=== PATIENT | male | born 1970 | race Two or more races ===

== ENCOUNTER 2021-04-19 11:18 | Inpatient (IN) | payer OTHER ==
[2021-04-19] VITALS (11 sets, daily range): BP systolic 109–129; BP diastolic 60–67
[~2021-04-19] VITALS: Ht 175.3 cm; Wt 131.0 kg
[2021-04-19] MEDS ORDERED: methylPREDNISolone SOD SUCC 125 MG/2 ML VL IV ONE (11:30)
[2021-04-19] MEDS ORDERED: ACETAMINOPHEN 500 MG TAB PO ONE (11:30)
[2021-04-19 12:44] LABS: Basophils # (auto) 0 10 ^3/uL (0-0.2); Basophils % (auto) 0.1 % (0.0-2.0); Eosinophils # (auto) 0 10 ^3/uL (0-0.8); Hematocrit 27.4 % (41.0-53.0); Hemoglobin 9.4 g/dL (13.5-17.5); Lymphocytes # (auto) 1.8 10 ^3/uL (0.4-5.4); Lymphocytes % (auto) 8.1 % (10.0-50.0); Mean Corpuscular Hemoglobin 30.6 pg (28.0-32.0); Mean Corpuscular Hgb Conc. 34.3 g/dL (32.0-36.0); Mean Corpuscular Volume 89.4 fL (80.0-100.0); Monocytes # (auto) 0.5 10 ^3/uL (0-1.3); Monocytes % (auto) 2.3 % (0.0-12.0); Neutrophils # (auto) 19.9 10 ^3/uL (1.6-8.6); Neutrophils % (auto) 89.5 % (37.0-80.0); Red Blood Cells 3.07 10^6/uL (4.5-5.90); Red Cell Distribution Width 14.4 % (11.8-14.3); White Blood Cell 22.2 10^3/uL (4.4-10.8)
[2021-04-19 12:58] LABS: Chloride 99 mmol/L (98-107); Potassium 3.6 mmol/L (3.5-5.1); Sodium 131 mmol/L (136-145)
[2021-04-19] MEDS ORDERED: MORPHINE SULFATE INJECTION 2 MG/ML SYRG IV PRN (13:00)
[2021-04-19 13:11] LABS: Alanine Aminotransferase 28 U/L (16-61); Albumin 2.4 g/dL (3.4-5.0); Alkaline Phosphatase 81 U/L (45-117); Anion Gap 14 (5-15); Aspartate Aminotransferase 40 U/L (15-37); BUN/Creatinine Ratio 9.6; Bilirubin, Total 0.5 mg/dL (0.2-1.0); Calcium 7.5 mg/dL (8.5-10.1); Carbon Dioxide 18 mmol/L (21-32); GFR African American 8 mL/min; GFR Non-African American 6 mL/min; Glucose 130 mg/dL (74-106); Total Protein 7.6 g/dL (6.4-8.2)
[2021-04-19] MEDS ORDERED: traMADol HCL 50 MG TAB PO PRN (13:15)
[2021-04-19] MEDS ORDERED: diphenhdrAMINE HCL 50 MG/1 ML VL IV PRN (13:15)
[2021-04-19] MEDS ORDERED: levoFLOXacin 250MG 50 ML IV ONE (13:15)
[2021-04-19] MEDS ORDERED: TEMAZEPAM 15 MG CAP PO PRN (13:15)
[2021-04-19] MEDS ORDERED: ACETAMINOPHEN 500 MG TAB PO PRN (13:15)
[2021-04-19] MEDS ORDERED: PROMETHAZINE HCL 25 MG/ML 1ML IV PRN (13:15)
[2021-04-19] MEDS ORDERED: REMDESIVIR PER PHARMACY 0 ML IV SCH (13:15)
[2021-04-19] MEDS ORDERED: DEXTROSE (50%) 50ML SYRG IV PRN (13:15)
[2021-04-19] MEDS: CLINDAMYCIN 600MG IV 50 ML IV SCH ×2 (13:47→21:09)
[2021-04-19 13:48] LABS: CRP High Sensitivity > 19.0 mg/dL (< 0.3)
[2021-04-19 13:52] LABS: Blood Urea Nitrogen 89 mg/dL (7-18)
[2021-04-19] MEDS ORDERED: ENOXAPARIN SOD 100 MG/1 ML SYRINGE SC ONE (15:00)
[2021-04-19] MEDS: InsuLIN REG 1unit/0.01ml Soln (100units/ml) SC SCH ×2 (18:25→22:20)
[2021-04-19] MEDS: ACCU-CHEK COMFORT CURVE STRIP VI SCH ×2 (18:29→22:18)
[2021-04-19] MEDS: BUDESONIDE (INHALATION) 180 MCG IH IN SCH (20:25)
[2021-04-19] MEDS: ALBUTEROL SULF HFA 90MCG INH 200DOSE IN PRN (20:25)
[2021-04-19] MEDS: ATORVASTATIN 20 MG TAB PO SCH (21:09)
[2021-04-19] MEDS ORDERED: HYDR50TA15 PO (21:32)
[2021-04-19] MEDS ORDERED: INS7030I SC (21:32)
[2021-04-19] MEDS ORDERED: NIFE20CA PO (21:32)
[2021-04-19] MEDS ORDERED: CINA30TA2 PO (21:32)
[2021-04-19] MEDS ORDERED: ATOR20TA PO (21:32)
[2021-04-20] VITALS (31 sets, daily range): BP systolic 102–136; BP diastolic 56–71
[2021-04-20] MEDS: CLINDAMYCIN 600MG IV 50 ML IV SCH ×2 (05:17→13:26)
[2021-04-20 05:58] LABS: Basophils # (auto) 0 10 ^3/uL (0-0.2); Basophils % (auto) 0.1 % (0.0-2.0); Eosinophils # (auto) 0 10 ^3/uL (0-0.8); Hematocrit 27.5 % (41.0-53.0); Hemoglobin 9.2 g/dL (13.5-17.5); Lymphocytes # (auto) 1.3 10 ^3/uL (0.4-5.4); Mean Corpuscular Hemoglobin 29.9 pg (28.0-32.0); Mean Corpuscular Hgb Conc. 33.6 g/dL (32.0-36.0); Mean Corpuscular Volume 88.8 fL (80.0-100.0); Monocytes # (auto) 0.4 10 ^3/uL (0-1.3); Monocytes % (auto) 2.5 % (0.0-12.0); Neutrophils # (auto) 14.8 10 ^3/uL (1.6-8.6); Neutrophils % (auto) 89.4 % (37.0-80.0); Nucleated Red Blood Cells % 0.1 %; Red Blood Cells 3.09 10^6/uL (4.5-5.90); Red Cell Distribution Width 14.7 % (11.8-14.3); White Blood Cell 16.6 10^3/uL (4.4-10.8)
[2021-04-20] MEDS: ACCU-CHEK COMFORT CURVE STRIP VI SCH ×4 (05:59→21:57)
[2021-04-20] MEDS: InsuLIN REG 1unit/0.01ml Soln (100units/ml) SC SCH ×4 (06:00→21:57)
[2021-04-20] MEDS: ALBUTEROL SULF HFA 90MCG INH 200DOSE IN PRN ×2 (06:17→18:32)
[2021-04-20] MEDS: BUDESONIDE (INHALATION) 180 MCG IH IN SCH ×2 (06:17→18:31)
[2021-04-20 06:18] LABS: Albumin 2.1 g/dL (3.4-5.0)
[2021-04-20 06:26] LABS: BUN/Creatinine Ratio 11.2; Bilirubin, Total 0.4 mg/dL (0.2-1.0); Total Protein 7.4 g/dL (6.4-8.2)
[2021-04-20] MEDS: ASCORBIC ACID 1,000 MG TAB PO SCH (09:14)
[2021-04-20] MEDS: DexAMETHasone SOD PHOS 10MG/1ML VIAL INJ IV SCH (09:14)
[2021-04-20] MEDS: ENOXAPARIN SOD 100 MG/1 ML SYRINGE SC SCH (09:15)
[2021-04-20] MEDS: IVERMECTIN 3 MG TAB PO SCH (09:15)
[2021-04-20] MEDS: CHOLECALCIFEROL (VITD3) 2,000 UNIT CAP/TAB PO SCH (09:15)
[2021-04-20] MEDS: ZINC SULFATE 220mg CAP or TAB PO SCH (09:16)
[2021-04-20] MEDS ORDERED: NITROGLYCERIN 0.2MG/HR TOPICAL PATCH TD SCH (10:00)
[2021-04-20] MEDS ORDERED: ENOXAPARIN SOD 40 MG/0.4 ML SYRINGE SC SCH (10:00)
[2021-04-20] MEDS ORDERED: PERITONEAL DIALYSIS IP SCH (14:00)
[2021-04-20] MEDS ORDERED: REMDESIVIR 200 MG in NS 210ml LOADING DOSE ADULT IV ONE (15:00)
[2021-04-20] MEDS: PERITONEAL DIALYSIS 2.5% SOLN 2,000 ML IP SCH ×2 (16:00→21:57)
[2021-04-20] MEDS: ATORVASTATIN 20 MG TAB PO SCH (20:20)
[2021-04-21] VITALS (23 sets, daily range): BP systolic 125–163; BP diastolic 57–79
[2021-04-21 05:19] LABS: Hematocrit 28.2 % (41.0-53.0); Hemoglobin 9.4 g/dL (13.5-17.5); Mean Corpuscular Hemoglobin 29.6 pg (28.0-32.0); Mean Corpuscular Hgb Conc. 33.3 g/dL (32.0-36.0); Mean Corpuscular Volume 88.9 fL (80.0-100.0); Red Blood Cells 3.17 10^6/uL (4.5-5.90); Red Cell Distribution Width 14.3 % (11.8-14.3)
[2021-04-21] MEDS: PERITONEAL DIALYSIS 2.5% SOLN 2,000 ML IP SCH ×8 (05:37→20:44)
[2021-04-21] MEDS: ALBUTEROL SULF HFA 90MCG INH 200DOSE IN PRN ×2 (05:42→20:41)
[2021-04-21] MEDS: BUDESONIDE (INHALATION) 180 MCG IH IN SCH ×2 (05:42→18:00)
[2021-04-21 05:44] LABS: Potassium 4.3 mmol/L (3.5-5.1)
[2021-04-21 05:45] LABS: Basophils % (manual) 0 (0.0-2.0); Blast Cells 0; Eosinophils % (manual) 0 (0-7); Metamyelocytes % 0; Myelocytes % 0; Promyelocytes % 0; Reactive Lymphocytes 0
[2021-04-21] MEDS: ACCU-CHEK COMFORT CURVE STRIP VI SCH ×4 (05:49→21:37)
[2021-04-21 05:50] LABS: Albumin 2.2 g/dL (3.4-5.0); BUN/Creatinine Ratio 12.9; Bilirubin, Total 0.4 mg/dL (0.2-1.0); Calcium 7.9 mg/dL (8.5-10.1); Total Protein 7.1 g/dL (6.4-8.2)
[2021-04-21] MEDS: InsuLIN REG 1unit/0.01ml Soln (100units/ml) SC SCH ×4 (05:51→21:40)
[2021-04-21 09:43] LABS: Band Neutrophils % (manual) 2; Lymphocytes % (manual) 4 (10.0-50.0); Monocytes % (manual) 2 (0-12)
[2021-04-21] MEDS: ENOXAPARIN SOD 100 MG/1 ML SYRINGE SC SCH (10:16)
[2021-04-21] MEDS: ZINC SULFATE 220mg CAP or TAB PO SCH (10:16)
[2021-04-21] MEDS: DexAMETHasone SOD PHOS 10MG/1ML VIAL INJ IV SCH (10:16)
[2021-04-21] MEDS: ASCORBIC ACID 1,000 MG TAB PO SCH (10:17)
[2021-04-21] MEDS: CHOLECALCIFEROL (VITD3) 2,000 UNIT CAP/TAB PO SCH (10:17)
[2021-04-21] MEDS: IVERMECTIN 3 MG TAB PO SCH (10:17)
[2021-04-21] MEDS: levoFLOXacin 250MG 50 ML IV SCH (12:30)
[2021-04-21] MEDS: REMDESIVIR 100mg 100 MG in SODIUM CHL 0.9% 230 ML IV SCH (15:32)
[2021-04-21] MEDS: ATORVASTATIN 20 MG TAB PO SCH (21:37)
[2021-04-22] VITALS (25 sets, daily range): BP systolic 129–164; BP diastolic 64–83
[2021-04-22] MEDS: PERITONEAL DIALYSIS 2.5% SOLN 2,000 ML IP SCH ×6 (02:30→20:58)
[2021-04-22] MEDS: InsuLIN REG 1unit/0.01ml Soln (100units/ml) SC SCH ×4 (05:55→20:58)
[2021-04-22 06:06] LABS: Hematocrit 27.3 % (41.0-53.0); Hemoglobin 9.4 g/dL (13.5-17.5); Mean Corpuscular Hemoglobin 29.9 pg (28.0-32.0); Mean Corpuscular Hgb Conc. 34.2 g/dL (32.0-36.0); Mean Corpuscular Volume 87.4 fL (80.0-100.0); Red Blood Cells 3.13 10^6/uL (4.5-5.90); Red Cell Distribution Width 14.3 % (11.8-14.3); White Blood Cell 14.3 10^3/uL (4.4-10.8)
[2021-04-22 06:26] LABS: Basophils % (manual) 0 (0.0-2.0); Blast Cells 0; Eosinophils % (manual) 0 (0-7); Metamyelocytes % 0; Myelocytes % 0; Promyelocytes % 0; Reactive Lymphocytes 0
[2021-04-22 06:36] LABS: BUN/Creatinine Ratio 14.3; Calcium 7.9 mg/dL (8.5-10.1)
[2021-04-22 06:39] LABS: Bilirubin, Total 0.5 mg/dL (0.2-1.0); Total Protein 6.6 g/dL (6.4-8.2)
[2021-04-22] MEDS: ACCU-CHEK COMFORT CURVE STRIP VI SCH ×4 (06:59→21:07)
[2021-04-22] MEDS: ASCORBIC ACID 1,000 MG TAB PO SCH (10:00)
[2021-04-22] MEDS: DexAMETHasone SOD PHOS 10MG/1ML VIAL INJ IV SCH (10:00)
[2021-04-22] MEDS: ZINC SULFATE 220mg CAP or TAB PO SCH (10:00)
[2021-04-22] MEDS ORDERED: NIFEdipine ER 30 MG TAB PO SCH (10:00)
[2021-04-22] MEDS: CHOLECALCIFEROL (VITD3) 2,000 UNIT CAP/TAB PO SCH (10:00)
[2021-04-22] MEDS: IVERMECTIN 3 MG TAB PO SCH (10:00)
[2021-04-22] MEDS: ENOXAPARIN SOD 40 MG/0.4 ML SYRINGE SC SCH (10:00)
[2021-04-22] MEDS ORDERED: INSULIN 70/30 1unit/0.01ml Susp (100units/ml) SC ONE (11:15)
[2021-04-22 11:26] LABS: Band Neutrophils % (manual) 1; Lymphocytes % (manual) 3 (10.0-50.0); Monocytes % (manual) 9 (0-12)
[2021-04-22] MEDS: BUDESONIDE (INHALATION) 180 MCG IH IN SCH ×2 (14:17→18:10)
[2021-04-22] MEDS: REMDESIVIR 100mg 100 MG in SODIUM CHL 0.9% 230 ML IV SCH (15:00)
[2021-04-22] MEDS: INSULIN 70/30 1unit/0.01ml Susp (100units/ml) SC SCH (18:00)
[2021-04-22] MEDS: ALBUTEROL SULF HFA 90MCG INH 200DOSE IN PRN (18:52)
[2021-04-22] MEDS: ATORVASTATIN 20 MG TAB PO SCH (20:26)
[2021-04-22] MEDS: NIFEdipine ER 30 MG TAB PO SCH (20:58)
[2021-04-23] VITALS (20 sets, daily range): BP systolic 118–141; BP diastolic 49–70
[2021-04-23] MEDS: ACCU-CHEK COMFORT CURVE STRIP VI SCH ×4 (05:54→21:56)
[2021-04-23] MEDS: InsuLIN REG 1unit/0.01ml Soln (100units/ml) SC SCH ×4 (05:55→21:56)
[2021-04-23 05:58] LABS: Basophils # (auto) 0 10 ^3/uL (0-0.2); Basophils % (auto) 0.1 % (0.0-2.0); Eosinophils # (auto) 0 10 ^3/uL (0-0.8); Eosinophils % (auto) 0.1 % (0.0-7.0); Hematocrit 28.9 % (41.0-53.0); Hemoglobin 9.7 g/dL (13.5-17.5); Lymphocytes # (auto) 0.8 10 ^3/uL (0.4-5.4); Lymphocytes % (auto) 4.3 % (10.0-50.0); Mean Corpuscular Hemoglobin 29.3 pg (28.0-32.0); Mean Corpuscular Hgb Conc. 33.6 g/dL (32.0-36.0); Mean Corpuscular Volume 87.2 fL (80.0-100.0); Monocytes # (auto) 0.7 10 ^3/uL (0-1.3); Monocytes % (auto) 3.7 % (0.0-12.0); Neutrophils # (auto) 17.1 10 ^3/uL (1.6-8.6); Neutrophils % (auto) 91.8 % (37.0-80.0); Red Blood Cells 3.32 10^6/uL (4.5-5.90); Red Cell Distribution Width 14.2 % (11.8-14.3); White Blood Cell 18.6 10^3/uL (4.4-10.8)
[2021-04-23] MEDS: PERITONEAL DIALYSIS 2.5% SOLN 2,000 ML IP SCH ×6 (06:09→20:35)
[2021-04-23] MEDS: ALBUTEROL SULF HFA 90MCG INH 200DOSE IN PRN ×2 (06:15→18:45)
[2021-04-23] MEDS: BUDESONIDE (INHALATION) 180 MCG IH IN SCH ×2 (06:16→18:45)
[2021-04-23 06:18] LABS: Calcium 7.7 mg/dL (8.5-10.1)
[2021-04-23 06:21] LABS: BUN/Creatinine Ratio 16.1
[2021-04-23 06:24] LABS: Bilirubin, Total 0.6 mg/dL (0.2-1.0)
[2021-04-23] MEDS: INSULIN 70/30 1unit/0.01ml Susp (100units/ml) SC SCH ×2 (08:00→18:00)
[2021-04-23] MEDS: hydrALAZINE HCL 25 MG TAB PO SCH (10:00)
[2021-04-23] MEDS: ZINC SULFATE 220mg CAP or TAB PO SCH (10:00)
[2021-04-23] MEDS: PANTOPRAZOLE 40 MG TAB PO SCH ×2 (10:00→19:47)
[2021-04-23] MEDS: ASCORBIC ACID 1,000 MG TAB PO SCH (10:00)
[2021-04-23] MEDS: NIFEdipine ER 30 MG TAB PO SCH ×2 (10:00→21:56)
[2021-04-23] MEDS: CHOLECALCIFEROL (VITD3) 2,000 UNIT CAP/TAB PO SCH (10:00)
[2021-04-23] MEDS: DexAMETHasone SOD PHOS 10MG/1ML VIAL INJ IV SCH (10:00)
[2021-04-23] MEDS: IVERMECTIN 3 MG TAB PO SCH (10:00)
[2021-04-23] MEDS: ENOXAPARIN SOD 40 MG/0.4 ML SYRINGE SC SCH (10:00)
[2021-04-23] MEDS: levoFLOXacin 250MG 50 ML IV SCH (10:15)
[2021-04-23] MEDS ORDERED: VANCOMYCIN PER PHARMACY 0 MG IV SCH (10:45)
[2021-04-23] MEDS ORDERED: VANCOMYCIN 1GM/250ML 250 ML IV ONE (12:00)
[2021-04-23] MEDS: REMDESIVIR 100mg 100 MG in SODIUM CHL 0.9% 230 ML IV SCH (15:00)
[2021-04-23] MEDS ORDERED: VANCOMYCIN 500 MG in D5W 5% 100 ML IV ONE (15:45)
[2021-04-23] MEDS: ATORVASTATIN 20 MG TAB PO SCH (19:47)
[2021-04-23] MEDS ORDERED: ALUM & MAG HYDROX-SIMETH LIQ(MAALOX) 30 ML PO PRN (22:00)
[2021-04-24] VITALS (21 sets, daily range): BP systolic 100–129; BP diastolic 52–86
[2021-04-24] MEDS: PERITONEAL DIALYSIS 2.5% SOLN 2,000 ML IP SCH ×6 (04:00→20:00)
[2021-04-24] MEDS: NITROGLYCERIN 0.4 MG SL TAB SL PRN ×2 (05:34→05:56)
[2021-04-24] MEDS: InsuLIN REG 1unit/0.01ml Soln (100units/ml) SC SCH ×4 (06:08→22:30)
[2021-04-24] MEDS: ACCU-CHEK COMFORT CURVE STRIP VI SCH ×4 (06:08→22:29)
[2021-04-24 06:17] LABS: Basophils # (auto) 0 10 ^3/uL (0-0.2); Basophils % (auto) 0.1 % (0.0-2.0); Eosinophils # (auto) 0 10 ^3/uL (0-0.8); Eosinophils % (auto) 0.2 % (0.0-7.0); Hematocrit 29.3 % (41.0-53.0); Hemoglobin 9.8 g/dL (13.5-17.5); Lymphocytes # (auto) 0.7 10 ^3/uL (0.4-5.4); Lymphocytes % (auto) 3.2 % (10.0-50.0); Mean Corpuscular Hemoglobin 29.4 pg (28.0-32.0); Mean Corpuscular Hgb Conc. 33.4 g/dL (32.0-36.0); Mean Corpuscular Volume 87.8 fL (80.0-100.0); Monocytes # (auto) 0.6 10 ^3/uL (0-1.3); Monocytes % (auto) 2.7 % (0.0-12.0); Neutrophils # (auto) 19.9 10 ^3/uL (1.6-8.6); Neutrophils % (auto) 93.8 % (37.0-80.0); Nucleated Red Blood Cells % 0.1 %; Red Blood Cells 3.34 10^6/uL (4.5-5.90); Red Cell Distribution Width 14.8 % (11.8-14.3); White Blood Cell 21.2 10^3/uL (4.4-10.8)
[2021-04-24] MEDS: BUDESONIDE (INHALATION) 180 MCG IH IN SCH ×2 (06:23→19:06)
[2021-04-24] MEDS: ALBUTEROL SULF HFA 90MCG INH 200DOSE IN PRN ×2 (06:23→19:07)
[2021-04-24 06:29] LABS: Potassium 3.9 mmol/L (3.5-5.1)
[2021-04-24 06:49] LABS: Albumin 1.8 g/dL (3.4-5.0); BUN/Creatinine Ratio 16.5; Bilirubin, Total 0.5 mg/dL (0.2-1.0); Calcium 8.4 mg/dL (8.5-10.1); Total Protein 6.5 g/dL (6.4-8.2)
[2021-04-24] MEDS ORDERED: KETOROLAC TROMETH 30 MG/ML 1ML VIAL IV ONE (08:00)
[2021-04-24] MEDS: INSULIN 70/30 1unit/0.01ml Susp (100units/ml) SC SCH ×3 (08:00→18:00)
[2021-04-24] MEDS: hydrALAZINE HCL 25 MG TAB PO SCH (08:02)
[2021-04-24] MEDS ORDERED: VANCOMYCIN 1GM/250ML 250 ML IV ONE ×2 (08:30→18:00)
[2021-04-24] MEDS: ZINC SULFATE 220mg CAP or TAB PO SCH (10:00)
[2021-04-24] MEDS: PANTOPRAZOLE 40 MG TAB PO SCH ×2 (10:00→22:29)
[2021-04-24] MEDS: DexAMETHasone SOD PHOS 10MG/1ML VIAL INJ IV SCH (10:00)
[2021-04-24] MEDS: CHOLECALCIFEROL (VITD3) 2,000 UNIT CAP/TAB PO SCH (10:00)
[2021-04-24] MEDS: IVERMECTIN 3 MG TAB PO SCH (10:00)
[2021-04-24] MEDS: ASCORBIC ACID 1,000 MG TAB PO SCH (10:00)
[2021-04-24] MEDS: NIFEdipine ER 30 MG TAB PO SCH ×2 (10:00→22:00)
[2021-04-24] MEDS ORDERED: MORPHINE SULFATE INJECTION 2 MG/ML SYRG IV PRN (10:45)
[2021-04-24] MEDS ORDERED: ENOXAPARIN SOD 100 MG/1 ML SYRINGE SC ONE (12:30)
[2021-04-24] MEDS: CALCIUM CARB 500 MG CHEW TAB PO SCH (14:49)
[2021-04-24] MEDS: REMDESIVIR 100mg 100 MG in SODIUM CHL 0.9% 230 ML IV SCH (14:49)
[2021-04-24] MEDS: ATORVASTATIN 20 MG TAB PO SCH (22:29)
[2021-04-25] VITALS (26 sets, daily range): BP systolic 94–143; BP diastolic 50–67
[2021-04-25] MEDS: PERITONEAL DIALYSIS 2.5% SOLN 2,000 ML IP SCH ×6 (04:00→20:00)
[2021-04-25 05:22] LABS: Basophils # (auto) 0 10 ^3/uL (0-0.2); Basophils % (auto) 0.2 % (0.0-2.0); Eosinophils # (auto) 0 10 ^3/uL (0-0.8); Eosinophils % (auto) 0.1 % (0.0-7.0); Hematocrit 27.6 % (41.0-53.0); Hemoglobin 9.1 g/dL (13.5-17.5); Lymphocytes # (auto) 0.7 10 ^3/uL (0.4-5.4); Lymphocytes % (auto) 3.4 % (10.0-50.0); Mean Corpuscular Hemoglobin 28.9 pg (28.0-32.0); Mean Corpuscular Volume 87.6 fL (80.0-100.0); Monocytes # (auto) 0.7 10 ^3/uL (0-1.3); Monocytes % (auto) 3.2 % (0.0-12.0); Neutrophils % (auto) 93.1 % (37.0-80.0); Nucleated Red Blood Cells % 0.1 %; Red Blood Cells 3.15 10^6/uL (4.5-5.90); Red Cell Distribution Width 14.8 % (11.8-14.3); White Blood Cell 21.5 10^3/uL (4.4-10.8)
[2021-04-25 05:39] LABS: Potassium 4.4 mmol/L (3.5-5.1)
[2021-04-25 05:43] LABS: Albumin 1.7 g/dL (3.4-5.0); Bilirubin, Total 0.6 mg/dL (0.2-1.0); Calcium 8.5 mg/dL (8.5-10.1); Total Protein 5.8 g/dL (6.4-8.2)
[2021-04-25] MEDS: ACCU-CHEK COMFORT CURVE STRIP VI SCH ×4 (05:59→21:35)
[2021-04-25] MEDS: InsuLIN REG 1unit/0.01ml Soln (100units/ml) SC SCH ×4 (06:00→22:05)
[2021-04-25] MEDS: ALBUTEROL SULF HFA 90MCG INH 200DOSE IN PRN ×2 (06:26→21:55)
[2021-04-25] MEDS: BUDESONIDE (INHALATION) 180 MCG IH IN SCH ×2 (06:26→21:55)
[2021-04-25] MEDS: INSULIN 70/30 1unit/0.01ml Susp (100units/ml) SC SCH ×3 (07:49→18:00)
[2021-04-25] MEDS: CALCIUM CARB 500 MG CHEW TAB PO SCH ×3 (07:49→17:49)
[2021-04-25] MEDS: ASCORBIC ACID 1,000 MG TAB PO SCH (09:45)
[2021-04-25] MEDS: IVERMECTIN 3 MG TAB PO SCH (09:45)
[2021-04-25] MEDS: ZINC SULFATE 220mg CAP or TAB PO SCH (09:46)
[2021-04-25] MEDS: ENOXAPARIN SOD 150 MG/1 ML SYRINGE SC SCH (09:47)
[2021-04-25] MEDS: DexAMETHasone SOD PHOS 10MG/1ML VIAL INJ IV SCH (09:47)
[2021-04-25] MEDS: PANTOPRAZOLE 40 MG TAB PO SCH ×2 (09:47→21:35)
[2021-04-25] MEDS: CHOLECALCIFEROL (VITD3) 2,000 UNIT CAP/TAB PO SCH (09:47)
[2021-04-25] MEDS: NIFEdipine ER 30 MG TAB PO SCH ×3 (10:00→22:00)
[2021-04-25] MEDS: hydrALAZINE HCL 25 MG TAB PO SCH (10:00)
[2021-04-25] MEDS: levoFLOXacin 250MG 50 ML IV SCH (12:27)
[2021-04-25 15:10] LABS: Calcium 8.6 mg/dL (8.5-10.1); Potassium 4.7 mmol/L (3.5-5.1)
[2021-04-25] MEDS: ATORVASTATIN 20 MG TAB PO SCH (21:35)
[2021-04-26] VITALS (22 sets, daily range): BP systolic 96–142; BP diastolic 40–63
[2021-04-26] MEDS: PERITONEAL DIALYSIS 2.5% SOLN 2,000 ML IP SCH ×6 (01:18→20:00)
[2021-04-26 05:15] LABS: Basophils # (auto) 0 10 ^3/uL (0-0.2); Basophils % (auto) 0.2 % (0.0-2.0); Eosinophils # (auto) 0 10 ^3/uL (0-0.8); Hematocrit 26.8 % (41.0-53.0); Hemoglobin 8.9 g/dL (13.5-17.5); Lymphocytes # (auto) 0.8 10 ^3/uL (0.4-5.4); Lymphocytes % (auto) 4.5 % (10.0-50.0); Mean Corpuscular Hemoglobin 29.5 pg (28.0-32.0); Mean Corpuscular Hgb Conc. 33.3 g/dL (32.0-36.0); Mean Corpuscular Volume 88.4 fL (80.0-100.0); Monocytes # (auto) 0.6 10 ^3/uL (0-1.3); Monocytes % (auto) 3.3 % (0.0-12.0); Neutrophils # (auto) 16.6 10 ^3/uL (1.6-8.6); Red Blood Cells 3.04 10^6/uL (4.5-5.90); Red Cell Distribution Width 15.1 % (11.8-14.3)
[2021-04-26 05:33] LABS: Calcium 8.5 mg/dL (8.5-10.1)
[2021-04-26 05:37] LABS: BUN/Creatinine Ratio 17.8
[2021-04-26] MEDS: BUDESONIDE (INHALATION) 180 MCG IH IN SCH ×2 (06:03→18:20)
[2021-04-26] MEDS: ALBUTEROL SULF HFA 90MCG INH 200DOSE IN PRN ×2 (06:03→18:20)
[2021-04-26] MEDS: ACCU-CHEK COMFORT CURVE STRIP VI SCH ×4 (06:12→22:30)
[2021-04-26] MEDS: InsuLIN REG 1unit/0.01ml Soln (100units/ml) SC SCH ×4 (06:13→22:30)
[2021-04-26] MEDS: CALCIUM CARB 500 MG CHEW TAB PO SCH ×3 (08:00→18:06)
[2021-04-26] MEDS: INSULIN 70/30 1unit/0.01ml Susp (100units/ml) SC SCH ×3 (08:00→18:00)
[2021-04-26] MEDS: ENOXAPARIN SOD 150 MG/1 ML SYRINGE SC SCH (10:10)
[2021-04-26] MEDS: ASCORBIC ACID 1,000 MG TAB PO SCH (10:10)
[2021-04-26] MEDS: CHOLECALCIFEROL (VITD3) 2,000 UNIT CAP/TAB PO SCH (10:10)
[2021-04-26] MEDS: DexAMETHasone SOD PHOS 10MG/1ML VIAL INJ IV SCH (10:10)
[2021-04-26] MEDS: ZINC SULFATE 220mg CAP or TAB PO SCH (10:11)
[2021-04-26] MEDS: NIFEdipine ER 30 MG TAB PO SCH ×2 (10:11→22:15)
[2021-04-26] MEDS: PANTOPRAZOLE 40 MG TAB PO SCH ×2 (10:12→22:15)
[2021-04-26] MEDS: hydrALAZINE HCL 25 MG TAB PO SCH (10:12)
[2021-04-26] MEDS: ATORVASTATIN 20 MG TAB PO SCH (22:15)
[2021-04-27] VITALS (38 sets, daily range): BP systolic 103–152; BP diastolic 51–74
[2021-04-27] MEDS: PERITONEAL DIALYSIS 2.5% SOLN 2,000 ML IP SCH ×6 (04:00→22:00)
[2021-04-27 05:46] LABS: Basophils # (auto) 0 10 ^3/uL (0-0.2); Basophils % (auto) 0.1 % (0.0-2.0); Eosinophils # (auto) 0 10 ^3/uL (0-0.8); Eosinophils % (auto) 0.1 % (0.0-7.0); Hematocrit 25.2 % (41.0-53.0); Hemoglobin 8.6 g/dL (13.5-17.5); Lymphocytes # (auto) 0.8 10 ^3/uL (0.4-5.4); Lymphocytes % (auto) 4.6 % (10.0-50.0); Mean Corpuscular Hemoglobin 29.7 pg (28.0-32.0); Mean Corpuscular Hgb Conc. 34.3 g/dL (32.0-36.0); Mean Corpuscular Volume 86.8 fL (80.0-100.0); Monocytes # (auto) 0.7 10 ^3/uL (0-1.3); Neutrophils # (auto) 14.8 10 ^3/uL (1.6-8.6); Neutrophils % (auto) 91.2 % (37.0-80.0); Red Cell Distribution Width 14.7 % (11.8-14.3); White Blood Cell 16.3 10^3/uL (4.4-10.8)
[2021-04-27] MEDS: ALBUTEROL SULF HFA 90MCG INH 200DOSE IN PRN (05:55)
[2021-04-27] MEDS: BUDESONIDE (INHALATION) 180 MCG IH IN SCH (05:55)
[2021-04-27 06:02] LABS: Calcium 8.2 mg/dL (8.5-10.1); Potassium 5.4 mmol/L (3.5-5.1)
[2021-04-27] MEDS ORDERED: LORazepam 0.5 MG TAB ONE (09:12)
[2021-04-27] MEDS ORDERED: LORazepam 0.5 MG TAB PO PRN (09:15)
[2021-04-27] MEDS: CHOLECALCIFEROL (VITD3) 2,000 UNIT CAP/TAB PO SCH (10:00)
[2021-04-27] MEDS: DexAMETHasone SOD PHOS 10MG/1ML VIAL INJ IV SCH (10:00)
[2021-04-27] MEDS ORDERED: FUROSEMIDE 40 MG/4 ML VIAL IV SCH (10:00)
[2021-04-27] MEDS ORDERED: LORazepam 2MG/ML-1ML VIAL IV PRN (11:15)
[2021-04-27] MEDS ORDERED: ETOMIDATE (2MG/ML) 20ML VIAL IV ONE (12:57)
[2021-04-27] MEDS ORDERED: SUCCINYLCHOLINE CHLORIDE 20 MG/ML 10ML VIAL IV ONE (12:57)
[2021-04-27] MEDS ORDERED: ROCURONIUM 10MG/ML 10ML VIAL IV ONE (12:57)
[2021-04-27] MEDS ORDERED: MIDAZOLAM DRIP 50 mg/50mL 50 ML IV ONE (13:12)
[2021-04-27] MEDS ORDERED: MIDAZOLAM HCL 2MG/2ML 2ml VIAL (1mg/ml) ONE (13:12)
[2021-04-27] MEDS ORDERED: MIDAZOLAM HCL 5 MG/ML-1ML VIAL IV ONE (13:15)
[2021-04-27] MEDS ORDERED: PROPOFOL 100 ML IV ONE (13:22)
[2021-04-27] MEDS: NOREPINEPHRINE 8 MG/250ML KIT 250 ML IV SCH (13:30)
[2021-04-27] MEDS ORDERED: fentaNYL Drip 2500mCg/250mlNS 250 ML IV SCH (13:30)
[2021-04-27] MEDS: MIDAZOLAM DRIP 50 mg/50mL 50 ML IV SCH ×2 (13:30→21:53)
[2021-04-27] MEDS: PROPOFOL 100 ML IV SCH ×3 (13:30→23:43)
[2021-04-27] MEDS: fentaNYL Drip 2500mCg/250mlNS 250 ML IV SCH ×2 (13:30→21:55)
[2021-04-27] MEDS ORDERED: NOREPINEPHRINE 8 MG/250ML KIT 250 ML IV SCH ×4 (13:30)
[2021-04-27] MEDS ORDERED: NOREPINEPHRINE 8 MG/250ML KIT 250 ML IV ONE (13:37)
[2021-04-27] MEDS ORDERED: SODIUM BICARBONATE 8.4 % INJ 50ML VIAL IV ONE (15:30)
[2021-04-27] MEDS: SODIUM BICARBONATE 50ML VIAL 150 ML in D5W 5% 1,000 ML IV SCH ×2 (16:30→20:10)
[2021-04-27] MEDS: ROCURONIUM BROMIDE 1,000 MG in D5W 5% 150 ML IV SCH ×2 (16:30→20:38)
[2021-04-27] MEDS: MEROPENEM 500MG IVPB 50 ML IV SCH ×2 (16:45→21:01)
[2021-04-27] MEDS: ALBUMIN 25% 100 ML IV SCH (17:00)
[2021-04-27] MEDS ORDERED: INSULIN 70/30 1unit/0.01ml Susp (100units/ml) SC SCH (18:00)
[2021-04-27] MEDS ORDERED: IPRATROPIUM BROM 0.5 MG/2.5ML INH SOL NEB PRN (18:15)
[2021-04-27] MEDS: ALBUTEROL SULF 2.5 MG/0.5ML(0.5%) NEB SOLN NEB SCH (22:00)
[2021-04-27] MEDS: BUDESONIDE (INHALATION) 0.5 MG/2 ML NEB NEB SCH (22:00)
[2021-04-27] MEDS: ACCU-CHEK COMFORT CURVE STRIP VI SCH (22:28)
[2021-04-27] MEDS: InsuLIN REG 1unit/0.01ml Soln (100units/ml) SC SCH (22:29)
[2021-04-27 23:43] LABS: Urine Amorphous Crystal FEW /hpf (None Seen); Urine Bacteria FEW /hpf (None Seen); Urine Blood Negative /uL (Negative); Urine Specific Gravity 1.015 (1.001-1.035); Urine WBC 9 /hpf (0 - 3)
[2021-04-28] VITALS (100 sets, daily range): BP systolic 98–154; BP diastolic 43–69
[2021-04-28] MEDS: NOREPINEPHRINE 8 MG/250ML KIT 250 ML IV SCH (00:54)
[2021-04-28] MEDS: MIDAZOLAM DRIP 50 mg/50mL 50 ML IV SCH ×4 (01:22→22:12)
[2021-04-28] MEDS: ALBUMIN 25% 100 ML IV SCH ×2 (01:25→09:16)
[2021-04-28] MEDS: PERITONEAL DIALYSIS 2.5% SOLN 2,000 ML IP SCH ×7 (02:00→17:50)
[2021-04-28] MEDS: ALBUTEROL SULF 2.5 MG/0.5ML(0.5%) NEB SOLN NEB SCH ×4 (02:00→14:14)
[2021-04-28] MEDS: PROPOFOL 100 ML IV SCH ×5 (02:12→20:59)
[2021-04-28 05:47] LABS: Basophils # (auto) 0 10 ^3/uL (0-0.2); Eosinophils # (auto) 0 10 ^3/uL (0-0.8); Lymphocytes # (auto) 0.7 10 ^3/uL (0.4-5.4); Monocytes # (auto) 0.7 10 ^3/uL (0-1.3)
[2021-04-28 05:49] LABS: Hematocrit 22.4 % (41.0-53.0); Hemoglobin 7.3 g/dL (13.5-17.5); Lymphocytes % (auto) 3.1 % (10.0-50.0); Mean Corpuscular Hemoglobin 29.9 pg (28.0-32.0); Mean Corpuscular Hgb Conc. 32.8 g/dL (32.0-36.0); Mean Corpuscular Volume 91.1 fL (80.0-100.0); Monocytes % (auto) 3.1 % (0.0-12.0); Neutrophils % (auto) 93.8 % (37.0-80.0); Red Blood Cells 2.46 10^6/uL (4.5-5.90); White Blood Cell 22.4 10^3/uL (4.4-10.8)
[2021-04-28] MEDS: BUDESONIDE (INHALATION) 0.5 MG/2 ML NEB NEB SCH (06:04)
[2021-04-28 06:12] LABS: BUN/Creatinine Ratio 17.4
[2021-04-28] MEDS: ACCU-CHEK COMFORT CURVE STRIP VI SCH ×7 (06:46→23:53)
[2021-04-28] MEDS: InsuLIN REG 1unit/0.01ml Soln (100units/ml) SC SCH ×5 (06:47→23:59)
[2021-04-28] MEDS ORDERED: SODIUM ZIRCONIUM CYCL 10 GM PAK PO ONE ×2 (07:15→07:30)
[2021-04-28] MEDS ORDERED: DEXTROSE (50%) 50ML SYRG IV PRN ×2 (07:45→11:30)
[2021-04-28] MEDS ORDERED: SODIUM BICARBONATE 50ML VIAL 150 ML in SOD CHL 0.45% 1,000 ML IV SCH (07:45)
[2021-04-28] MEDS ORDERED: InsuLIN REG 1unit/0.01ml Soln (100units/ml) SC SCH (08:00)
[2021-04-28] MEDS ORDERED: SODIUM BICARBONATE 8.4 % INJ 50ML VIAL IV ONE (09:00)
[2021-04-28] MEDS: INSULIN LANTUS (GLARGINE) 1 /0.01ml (100units/ml) SC SCH ×2 (10:00→21:58)
[2021-04-28] MEDS ORDERED: ENOXAPARIN SOD 40 MG/0.4 ML SYRINGE SC SCH ×2 (10:00)
[2021-04-28] MEDS: MEROPENEM 500MG IVPB 50 ML IV SCH ×2 (10:09→22:13)
[2021-04-28] MEDS: DexAMETHasone SOD PHOS 10MG/1ML VIAL INJ IV SCH (10:11)
[2021-04-28] MEDS: CHOLECALCIFEROL (VITD3) 2,000 UNIT CAP/TAB PO SCH (10:12)
[2021-04-28] MEDS: PANTOPRAZOLE 40 MG/10 ML VIAL INJ IV SCH (10:12)
[2021-04-28] MEDS: ENOXAPARIN SOD 40 MG/0.4 ML SYRINGE SC SCH (10:12)
[2021-04-28] MEDS ORDERED: SODIUM CHL 0.9% 1000 ML BAG XX ONE (11:00)
[2021-04-28] MEDS: fentaNYL Drip 2500mCg/250mlNS 250 ML IV SCH ×2 (12:51→22:13)
[2021-04-28] MEDS ORDERED: EPOETIN ALFA-EPBX 10,000 UNIT/1ML VIAL SC ONE (21:00)
[2021-04-29] VITALS (107 sets, daily range): BP systolic 104–153; BP diastolic 42–69
[2021-04-29] MEDS: PROPOFOL 100 ML IV SCH ×7 (00:12→23:30)
[2021-04-29] MEDS: ALBUTEROL SULF 2.5 MG/0.5ML(0.5%) NEB SOLN NEB PRN ×2 (00:40→18:19)
[2021-04-29] MEDS: IPRATROPIUM BROM 0.5 MG/2.5ML INH SOL NEB PRN ×2 (00:40→18:19)
[2021-04-29] MEDS: BUDESONIDE (INHALATION) 0.5 MG/2 ML NEB NEB SCH ×2 (00:40→18:20)
[2021-04-29] MEDS: ROCURONIUM BROMIDE 1,000 MG in D5W 5% 150 ML IV SCH ×2 (00:48→16:57)
[2021-04-29] MEDS: MIDAZOLAM DRIP 50 mg/50mL 50 ML IV SCH ×5 (02:04→23:30)
[2021-04-29] MEDS: ACCU-CHEK COMFORT CURVE STRIP VI SCH ×6 (04:40→23:51)
[2021-04-29] MEDS: InsuLIN REG 1unit/0.01ml Soln (100units/ml) SC SCH ×5 (04:41→20:15)
[2021-04-29 05:34] LABS: Basophils # (auto) 0 10 ^3/uL (0-0.2); Basophils % (auto) 0.1 % (0.0-2.0); Eosinophils # (auto) 0 10 ^3/uL (0-0.8); Monocytes # (auto) 0.3 10 ^3/uL (0-1.3); Neutrophils # (auto) 11.2 10 ^3/uL (1.6-8.6); White Blood Cell 11.9 10^3/uL (4.4-10.8)
[2021-04-29 05:39] LABS: Hematocrit 18.5 % (41.0-53.0); Lymphocytes # (auto) 0.5 10 ^3/uL (0.4-5.4); Lymphocytes % (auto) 3.8 % (10.0-50.0); Mean Corpuscular Hemoglobin 29.5 pg (28.0-32.0); Mean Corpuscular Hgb Conc. 33.4 g/dL (32.0-36.0); Mean Corpuscular Volume 88.5 fL (80.0-100.0); Monocytes % (auto) 2.6 % (0.0-12.0); Neutrophils % (auto) 93.5 % (37.0-80.0); Red Blood Cells 2.09 10^6/uL (4.5-5.90); Red Cell Distribution Width 14.4 % (11.8-14.3)
[2021-04-29 06:02] LABS: Albumin 1.9 g/dL (3.4-5.0)
[2021-04-29 06:07] LABS: Bilirubin, Direct 0.6 mg/dL (0-0.2); Bilirubin, Total 0.8 mg/dL (0.2-1.0); Total Protein 5.2 g/dL (6.4-8.2)
[2021-04-29 06:29] LABS: BUN/Creatinine Ratio 14.8; Calcium 8.1 mg/dL (8.5-10.1); Potassium 4.8 mmol/L (3.5-5.1)
[2021-04-29 06:49] LABS: Hemoglobin 6.2 g/dL (13.5-17.5)
[2021-04-29] MEDS: DexAMETHasone SOD PHOS 10MG/1ML VIAL INJ IV SCH (09:58)
[2021-04-29] MEDS: PANTOPRAZOLE 40 MG/10 ML VIAL INJ IV SCH (09:58)
[2021-04-29] MEDS: MEROPENEM 500MG IVPB 50 ML IV SCH ×2 (09:58→21:43)
[2021-04-29] MEDS: ENOXAPARIN SOD 40 MG/0.4 ML SYRINGE SC SCH (09:58)
[2021-04-29] MEDS: CHOLECALCIFEROL (VITD3) 2,000 UNIT CAP/TAB PO SCH (09:58)
[2021-04-29] MEDS: SODIUM ZIRCONIUM CYCL 10 GM PAK PO SCH (10:00)
[2021-04-29] MEDS: INSULIN LANTUS (GLARGINE) 1 /0.01ml (100units/ml) SC SCH ×2 (10:00→21:44)
[2021-04-29] MEDS: fentaNYL Drip 2500mCg/250mlNS 250 ML IV SCH ×2 (10:19→21:35)
[2021-04-29] MEDS: NOREPINEPHRINE 8 MG/250ML KIT 250 ML IV SCH (13:30)
[2021-04-29] MEDS ORDERED: Nepro With Carb Steady 1 Liter Bottle GT SCH (17:30)
[2021-04-30] VITALS (96 sets, daily range): BP systolic 97–147; BP diastolic 42–59
[2021-04-30] MEDS: InsuLIN REG 1unit/0.01ml Soln (100units/ml) SC SCH ×6 (00:18→23:54)
[2021-04-30] MEDS: PROPOFOL 100 ML IV SCH ×6 (01:30→23:30)
[2021-04-30] MEDS: MIDAZOLAM DRIP 50 mg/50mL 50 ML IV SCH ×3 (03:30→23:30)
[2021-04-30] MEDS: ACCU-CHEK COMFORT CURVE STRIP VI SCH ×5 (04:00→23:54)
[2021-04-30 05:20] LABS: Basophils # (auto) 0 10 ^3/uL (0-0.2); Eosinophils % (auto) 0.4 % (0.0-7.0); Monocytes # (auto) 0.4 10 ^3/uL (0-1.3); Neutrophils # (auto) 11.6 10 ^3/uL (1.6-8.6); White Blood Cell 12.8 10^3/uL (4.4-10.8)
[2021-04-30 05:24] LABS: Basophils % (auto) 0.2 % (0.0-2.0); Eosinophils # (auto) 0.1 10 ^3/uL (0-0.8); Hemoglobin 7.5 g/dL (13.5-17.5); Lymphocytes # (auto) 0.8 10 ^3/uL (0.4-5.4); Lymphocytes % (auto) 5.9 % (10.0-50.0); Mean Corpuscular Hemoglobin 30.3 pg (28.0-32.0); Mean Corpuscular Hgb Conc. 34.3 g/dL (32.0-36.0); Mean Corpuscular Volume 88.4 fL (80.0-100.0); Neutrophils % (auto) 90.5 % (37.0-80.0); Red Blood Cells 2.49 10^6/uL (4.5-5.90); Red Cell Distribution Width 14.5 % (11.8-14.3)
[2021-04-30 05:44] LABS: Calcium 7.1 mg/dL (8.5-10.1); Potassium 5.4 mmol/L (3.5-5.1)
[2021-04-30 05:46] LABS: BUN/Creatinine Ratio 15.7
[2021-04-30] MEDS: BUDESONIDE (INHALATION) 0.5 MG/2 ML NEB NEB SCH ×2 (06:21→19:08)
[2021-04-30] MEDS: ALBUTEROL SULF 2.5 MG/0.5ML(0.5%) NEB SOLN NEB PRN ×2 (06:21→19:08)
[2021-04-30] MEDS: IPRATROPIUM BROM 0.5 MG/2.5ML INH SOL NEB PRN ×2 (06:21→19:08)
[2021-04-30] MEDS: fentaNYL Drip 2500mCg/250mlNS 250 ML IV SCH (06:52)
[2021-04-30] MEDS ORDERED: SODIUM CHL 0.9% 1000 ML BAG XX ONE (07:00)
[2021-04-30] MEDS: ROCURONIUM BROMIDE 1,000 MG in D5W 5% 150 ML IV SCH ×2 (09:06→20:15)
[2021-04-30] MEDS: SODIUM ZIRCONIUM CYCL 10 GM PAK PO SCH (10:00)
[2021-04-30] MEDS: CHOLECALCIFEROL (VITD3) 2,000 UNIT CAP/TAB PO SCH (10:00)
[2021-04-30] MEDS: INSULIN LANTUS (GLARGINE) 1 /0.01ml (100units/ml) SC SCH ×2 (10:00→21:04)
[2021-04-30] MEDS: MEROPENEM 500MG IVPB 50 ML IV SCH ×2 (10:00→21:16)
[2021-04-30] MEDS: DexAMETHasone SOD PHOS 10MG/1ML VIAL INJ IV SCH (10:00)
[2021-04-30] MEDS ORDERED: VANCOMYCIN 1GM/250ML 250 ML IV ONE ×2 (10:30→15:17)
[2021-04-30 11:15] LABS: Hepatitis A Ab IgM Negative; Hepatitis B Core IgM Negative; Hepatitis C Antibody Negative (Negative)
[2021-04-30] MEDS: NOREPINEPHRINE 8 MG/250ML KIT 250 ML IV SCH (13:30)
[2021-04-30] MEDS: ENOXAPARIN SOD 40 MG/0.4 ML SYRINGE SC SCH (15:19)
[2021-04-30] MEDS: PANTOPRAZOLE 40 MG/10 ML VIAL INJ IV SCH (15:19)
[2021-04-30] MEDS ORDERED: DEXTROSE (50%) 50ML SYRG IV PRN (16:30)
[2021-04-30] MEDS ORDERED: EPOETIN ALFA-EPBX 10,000 UNIT/1ML VIAL SC ONE (21:00)
[2021-05-01] VITALS (104 sets, daily range): BP systolic 95–140; BP diastolic 39–67
[2021-05-01] MEDS: NOREPINEPHRINE 8 MG/250ML KIT 250 ML IV SCH (01:30)
[2021-05-01] MEDS: MIDAZOLAM DRIP 50 mg/50mL 50 ML IV SCH ×2 (02:30→06:37)
[2021-05-01] MEDS: PROPOFOL 100 ML IV SCH ×3 (02:52→21:10)
[2021-05-01 05:28] LABS: Basophils # (auto) 0 10 ^3/uL (0-0.2); Eosinophils # (auto) 0.1 10 ^3/uL (0-0.8); Hemoglobin 8.3 g/dL (13.5-17.5); Monocytes # (auto) 0.5 10 ^3/uL (0-1.3); Red Cell Distribution Width 14.4 % (11.8-14.3)
[2021-05-01 05:31] LABS: Basophils % (auto) 0.1 % (0.0-2.0); Eosinophils % (auto) 0.5 % (0.0-7.0); Hematocrit 24.9 % (41.0-53.0); Lymphocytes # (auto) 0.6 10 ^3/uL (0.4-5.4); Lymphocytes % (auto) 3.6 % (10.0-50.0); Mean Corpuscular Hemoglobin 29.9 pg (28.0-32.0); Mean Corpuscular Hgb Conc. 33.4 g/dL (32.0-36.0); Mean Corpuscular Volume 89.5 fL (80.0-100.0); Monocytes % (auto) 2.8 % (0.0-12.0); Neutrophils # (auto) 15.9 10 ^3/uL (1.6-8.6); Red Blood Cells 2.78 10^6/uL (4.5-5.90); White Blood Cell 17.1 10^3/uL (4.4-10.8)
[2021-05-01 05:49] LABS: Calcium 7.4 mg/dL (8.5-10.1)
[2021-05-01 05:51] LABS: BUN/Creatinine Ratio 14.4
[2021-05-01] MEDS: BUDESONIDE (INHALATION) 0.5 MG/2 ML NEB NEB SCH ×2 (05:59→19:43)
[2021-05-01] MEDS: ALBUTEROL SULF 2.5 MG/0.5ML(0.5%) NEB SOLN NEB PRN ×2 (05:59→19:43)
[2021-05-01] MEDS: InsuLIN REG 1unit/0.01ml Soln (100units/ml) SC SCH ×3 (06:21→18:07)
[2021-05-01] MEDS: ACCU-CHEK COMFORT CURVE STRIP VI SCH ×3 (06:21→18:11)
[2021-05-01 06:45] LABS: Potassium 5.6 mmol/L (3.5-5.1)
[2021-05-01] MEDS ORDERED: SODIUM BICARBONATE 8.4 % INJ 50ML VIAL IV ONE (08:30)
[2021-05-01] MEDS: DexAMETHasone SOD PHOS 10MG/1ML VIAL INJ IV SCH (10:00)
[2021-05-01] MEDS: MEROPENEM 500MG IVPB 50 ML IV SCH ×2 (10:00→21:00)
[2021-05-01] MEDS: INSULIN LANTUS (GLARGINE) 1 /0.01ml (100units/ml) SC SCH (10:00)
[2021-05-01] MEDS: SODIUM ZIRCONIUM CYCL 10 GM PAK PO SCH ×2 (10:00→18:06)
[2021-05-01] MEDS: CHOLECALCIFEROL (VITD3) 2,000 UNIT CAP/TAB PO SCH (10:00)
[2021-05-01] MEDS: ENOXAPARIN SOD 40 MG/0.4 ML SYRINGE SC SCH (10:00)
[2021-05-01] MEDS: PANTOPRAZOLE 40 MG/10 ML VIAL INJ IV SCH (10:00)
[2021-05-01] MEDS: fentaNYL Drip 2500mCg/250mlNS 250 ML IV SCH (13:30)
[2021-05-01] MEDS ORDERED: FLUCONAZOLE 200MG/100ML 100 ML IV ONE (14:45)
[2021-05-01] MEDS: ROCURONIUM BROMIDE 1,000 MG in D5W 5% 150 ML IV SCH (17:24)
[2021-05-01] MEDS: METOCLOPRAMIDE HCL 5MG/ml INJ 2ml VIAL IV SCH (21:00)
[2021-05-01] MEDS ORDERED: SODIUM ZIRCONIUM CYCL 10 GM PAK PO SCH (22:00)
[2021-05-02] VITALS (56 sets, daily range): BP systolic 80–119; BP diastolic 15–38
[2021-05-02] MEDS: InsuLIN REG 1unit/0.01ml Soln (100units/ml) SC SCH ×3 (00:31→12:00)
[2021-05-02] MEDS: MIDAZOLAM DRIP 50 mg/50mL 50 ML IV SCH ×2 (00:45→12:23)
[2021-05-02] MEDS: PROPOFOL 100 ML IV SCH ×3 (01:21→10:30)
[2021-05-02] MEDS: SODIUM ZIRCONIUM CYCL 10 GM PAK PO SCH ×2 (02:00→10:31)
[2021-05-02 05:21] LABS: Basophils # (auto) 0.1 10 ^3/uL (0-0.2); Basophils % (auto) 0.6 % (0.0-2.0); Eosinophils # (auto) 0.1 10 ^3/uL (0-0.8); White Blood Cell 22.9 10^3/uL (4.4-10.8)
[2021-05-02 05:24] LABS: Eosinophils % (auto) 0.6 % (0.0-7.0); Hematocrit 22.4 % (41.0-53.0); Hemoglobin 7.3 g/dL (13.5-17.5); Lymphocytes % (auto) 8.7 % (10.0-50.0); Mean Corpuscular Hemoglobin 29.5 pg (28.0-32.0); Mean Corpuscular Hgb Conc. 32.7 g/dL (32.0-36.0); Mean Corpuscular Volume 90.3 fL (80.0-100.0); Monocytes % (auto) 4.4 % (0.0-12.0); Neutrophils # (auto) 19.6 10 ^3/uL (1.6-8.6); Neutrophils % (auto) 85.7 % (37.0-80.0); Nucleated Red Blood Cells % 0.2 %; Red Blood Cells 2.48 10^6/uL (4.5-5.90); Red Cell Distribution Width 14.3 % (11.8-14.3)
[2021-05-02 05:40] LABS: BUN/Creatinine Ratio 17.2; Calcium 7.4 mg/dL (8.5-10.1)
[2021-05-02] MEDS: NOREPINEPHRINE 8 MG/250ML KIT 250 ML IV SCH (05:45)
[2021-05-02] MEDS: IPRATROPIUM BROM 0.5 MG/2.5ML INH SOL NEB PRN (06:00)
[2021-05-02] MEDS: ALBUTEROL SULF 2.5 MG/0.5ML(0.5%) NEB SOLN NEB PRN (06:00)
[2021-05-02] MEDS: BUDESONIDE (INHALATION) 0.5 MG/2 ML NEB NEB SCH (06:00)
[2021-05-02] MEDS: METOCLOPRAMIDE HCL 5MG/ml INJ 2ml VIAL IV SCH (06:06)
[2021-05-02] MEDS: ACCU-CHEK COMFORT CURVE STRIP VI SCH ×3 (06:06→12:00)
[2021-05-02] MEDS ORDERED: SODIUM CHL 0.9% 1000 ML BAG XX ONE (07:00)
[2021-05-02] MEDS: ROCURONIUM BROMIDE 1,000 MG in D5W 5% 150 ML IV SCH (07:39)
[2021-05-02] MEDS ORDERED: PHENYLEPHRINE INJ 80 MG in SODIUM CHL 0.9% 242 ML IV SCH (08:00)
[2021-05-02] MEDS ORDERED: NOREPINEPHRINE BITARTRATE 32 MG in SODIUM CHL 0.9% 218 ML IV SCH (08:00)
[2021-05-02] MEDS ORDERED: FLUCONAZOLE 200MG/100ML 100 ML IV SCH (10:00)
[2021-05-02] MEDS: CHOLECALCIFEROL (VITD3) 2,000 UNIT CAP/TAB PO SCH (10:31)
[2021-05-02] MEDS: PANTOPRAZOLE 40 MG/10 ML VIAL INJ IV SCH (10:31)
[2021-05-02] MEDS: DexAMETHasone SOD PHOS 10MG/1ML VIAL INJ IV SCH (10:31)
[2021-05-02] MEDS: MEROPENEM 500MG IVPB 50 ML IV SCH (10:32)
[2021-05-02] MEDS ORDERED: VASOPRESSIN 50 UNITS in D5W 5% 247.5 ML IV SCH (12:45)
[2021-05-02] MEDS ORDERED: EPINEPHrine HCL 1 MG/10 ML SYRG IV ONE (17:59)
[2021-05-02] MEDS ORDERED: SODIUM BICARBONATE 8.4% INJ 50ML SYRINGE IV ONE (17:59)
== END 2021-05-02 18:00 | DRG 870 ==
LOC: EDBD 11:18 → ER 11:18 → OVERFLOW 12:53 → ICU CENTRL 18:08 → DOU IN ICU 18:54
PROVIDERS: ADMIT Internal Medicine; ATTEND Internal Medicine
PROC: 5A09457 Assistance with Respiratory Ventilation, 24-96 Consecutive Hours, Continuous Positive Airway Pressure (ICD-10-PCS; 2021-04-19)
PROC: XW033E5 Introduction of Remdesivir Anti-infective into Peripheral Vein, Percutaneous Approach, New Technology Group 5 (ICD-10-PCS; 2021-04-20)
PROC: 5A0945A Assistance with Respiratory Ventilation, 24-96 Consecutive Hours, High Flow/Velocity Cannula (ICD-10-PCS; 2021-04-25)
PROC: 5A1955Z Respiratory Ventilation, Greater than 96 Consecutive Hours (ICD-10-PCS; principal; 2021-04-27)
PROC: 5A09357 Assistance with Respiratory Ventilation, Less than 24 Consecutive Hours, Continuous Positive Airway Pressure (ICD-10-PCS; 2021-04-27)
PROC: 0BH17EZ Insertion of Endotracheal Airway into Trachea, Via Natural or Artificial Opening (ICD-10-PCS; 2021-04-27)
PROC: 06HM33Z Insertion of Infusion Device into Right Femoral Vein, Percutaneous Approach (ICD-10-PCS; 2021-04-27)
PROC: 02HV33Z Insertion of Infusion Device into Superior Vena Cava, Percutaneous Approach (ICD-10-PCS; 2021-04-28)
PROC: 5A1D70Z Performance of Urinary Filtration, Intermittent, Less than 6 Hours Per Day (ICD-10-PCS; 2021-04-28)
PROC: 30233N1 Transfusion of Nonautologous Red Blood Cells into Peripheral Vein, Percutaneous Approach (ICD-10-PCS; 2021-04-29)
PROC: 5A1D70Z Performance of Urinary Filtration, Intermittent, Less than 6 Hours Per Day (ICD-10-PCS; 2021-04-30)
PROC: 5A12012 Performance of Cardiac Output, Single, Manual (ICD-10-PCS; 2021-05-02)
PROC: 5A1D70Z Performance of Urinary Filtration, Intermittent, Less than 6 Hours Per Day (ICD-10-PCS; 2021-05-02)
DX: A41.89 Other specified sepsis (principal); E43 Unspecified severe protein-calorie malnutrition; I21.A1 Myocardial infarction type 2; J12.82 Pneumonia due to coronavirus disease 2019; N18.6 End stage renal disease; R65.21 Severe sepsis with septic shock; U07.1 COVID-19; J80 Acute respiratory distress syndrome; Z68.41 Body mass index [BMI] 40.0-44.9, adult; E87.1 Hypo-osmolality and hyponatremia; I12.0 Hypertensive chronic kidney disease with stage 5 chronic kidney disease or end stage renal disease; D63.1 Anemia in chronic kidney disease; E11.22 Type 2 diabetes mellitus with diabetic chronic kidney disease; E66.01 Morbid (severe) obesity due to excess calories; D89.839 Cytokine release syndrome, grade unspecified; E78.5 Hyperlipidemia, unspecified; E87.5 Hyperkalemia; R12 Heartburn; B95.8 Unspecified staphylococcus as the cause of diseases classified elsewhere; I46.9 Cardiac arrest, cause unspecified; Z79.4 Long term (current) use of insulin; Z82.49 Family history of ischemic heart disease and other diseases of the circulatory system; Z88.0 Allergy status to penicillin; Z83.3 Family history of diabetes mellitus; Z99.2 Dependence on renal dialysis; Z88.6 Allergy status to analgesic agent
CPT/HCPCS: 36415; 36600; 71045; 80048; 80053; 80061; 80074; 80076; 80202; 81001; 82040; 82550; 82728; 82805; 82962; 83036; 83605; 83880; 84132; 84484; 85007; 85025; 85027; 85379; 86141; 86850; 86900; 86901; 86920; 87040; 87070; 87077; 87081; 87086; 87186; 87205; 87426; 89051; 90935; 92950; 93005; 93306; 93970; 94002; 94003; 94640; 94660; 96365; 96372; 96375; 99291; C9113; G0378; J0330; J1100; J1450; J1642; J1815; J2185; J2250; J2704; J3490; J7060; P9047